=== PATIENT | female | born 1985 | race Caucasian/White ===

== ENCOUNTER 2025-03-17 08:28 | Outpatient (AMB) | payer BC, SELFPAY ==
--- NOTE | 2025-03-17 08:37 | MHC.OFFVIS ---
Intake Visit Reasons: MS Allergies cephalexin Allergy (Unknown, Verified 03/17/25 08:40) Unknown Medication List - Last Reconciled 03/17/25 by Maday Terrazas CNP baclofen 10 mg PO BID PRN gabapentin 100 mg PO TID modafinil 200 mg PO DAILY ocrelizumab (Ocrevus) 600 mg IV [id number] sertraline 50 mg PO DAILY HPI Comments Details: She was doing okay. No new MS symptoms. Intermittent tingling to L foot is unchanged. Heaviness in arms and legs unchanged. Bilateral hand numbness and stiffness unchanged. Has trouble walking for longer than 20 minutes without having to rest, no falls. Modafinil from [facility] neurologist helping with short-term memory and concentration. 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 Home Ocrevus infusions, managed by [facility] neurologist, last 01/28/2025. Has brain and spine MRIs with and without contrast ordered by [facility] neurologist, no yet scheduled. No significant migraines, has not had to use sumatriptan. Some kicking in legs at night controlled with gabapentin. Sleep was okay. Had MRI brain WO contrast at [facility], ordered by [facility] neurologist 02/2024, report on phone, unchanged from prior. Some intermittent tingling to left foot since 11/2023, started after long day of walking and can be triggered by touching certain parts of leg. Mental fatigue at end of day. Has some trouble with short-term memory and difficulty concentrating. Modafinil from [facility] neurologist helping. Gets tired easily when walking longer distances or standing for longer periods of time. Using rollator walker more regularly. Arms and legs feel heavy. Gets tired easily when walking longer distances or standing for longer periods of time. Using rollator walker more regularly. Arms and legs feel heavy. No trouble typing on computer. Fine motor skills are not as great. Generally sleeping okay. She had a spell of dissociation on 04/29/22 for 20-30 secs. MRI of brain and spinal cord in July 2020 unchanged and no new activity. Started Ocrevus 07/26/17. Premedicated with Solumedrol just before and Benadryl. No side effects except mouth feels parched. She first developed optic neuritis at age 17 and subsequently had another bout of optic neuritis in the other eye. She was diagnosed with relapsing remitting multiple sclerosis at age 17. She was under the care of Dr. Blanchard, subsequently by in [place], and most recently followed by a neurologist in [place]. She was initially treated for a few years with Avonex, subsequently Rebif, Aubagio, Tecfidera and finally Gilenya. She has continued to have active MS in spite of these drugs based on her history and MRI. She has generally done well clinically and is functioning well, except in the last year she has noted some memory problems and in the last 3 weeks she's developed right lower extremity numbness and difficulty walking. She is using a walker to get around. Bladder function is normal. She has some lack of dexterity in the right hand as well. She's developed nausea and vomiting in the last few weeks. Her menstrual cycle was 1 week ago and she is not . No migraines with visual aura since 2017. Memory is better than before. Review of Systems Const Denies chills, Denies daytime sleepiness, Denies difficulty sleeping, Reports fatigue, Denies fever(s), Denies frequent falls, Reports headache(s), Denies increased appetite, Denies poor appetite, Denies snoring, Denies weakness, Denies weight gain and Denies weight loss Eyes Denies loss of vision ENT Denies vertigo, Reports dizziness, Reports headache(s) and Denies neck pain Card Denies chest pain at rest, Denies chest pain with activity, Denies syncope, Denies leg edema, Denies palpitations, Denies dyspnea and Denies dyspnea on exertion Resp Denies cough, Denies dyspnea, Denies dyspnea on exertion and Denies snoring GI Denies abdominal pain, Denies constipation, Denies heartburn, Denies diarrhea and Denies nausea Denies urinary frequency, Denies urinary incontinence and Denies urinary urgency Musc Reports abnormal gait (balance difficulty), Denies back pain, Denies myalgias, Denies arthralgias, Reports muscle weakness, Denies neck pain, Reports numbness and Reports tingling Neuro Reports abnormal gait (balance difficulty), Denies vertigo, Reports dizziness, Denies syncope, Denies frequent falls, Reports headache(s), Denies lack of coordination, Denies loss of vision, Denies memory loss, Reports numbness, Denies Other visual disturbances, Denies restless legs, Denies seizure-like activity, Reports tingling, Denies paresthesias, Denies tremor(s) and Denies weakness Psych Reports anxiety, Reports depression, Denies auditory hallucinations, Denies memory loss and Denies visual hallucinations Endo Reports fatigue and Denies palpitations Physical Exam Const Other: General Appearance:? normal, in no acute distress. Heart:? S1, S2 normal, no murmurs. Lungs:? clear anteriorly and posteriorly. Musculoskeletal:? normal. Extremities:? no edema. Psych:? alert, oriented, cognitive function intact, cooperative with exam. Neuro Other: Abnormal Neurological Findings:?RUE 5/5, RLE 5/5, distally 5/5 with hyperreflexia and bilateral Babinski, Nystagmus on left lateral gaze is gone. Slow horizontal saccadic eye movements Mental Status: alert and oriented X 3. Normal attention, orientation, memory, and affect. Cranial Nerves: Pupils are equal, round, and reactive to light. External ocular muscles are intact. Visual lares are full, no ptosis. Face is symmetrical, no facial weakness or droop. Facial sensations are normal. Tongue protrudes in midline. Palate elevates symmetrically. Shoulder shrugging is normal Motor Examination: As above. Sensory Exam: Normal light touch, temperature, pinprick, vibration, and joint-position sensations. Rhomberg sign is absent. Coordination: No ataxia. No titubation. Gait Exam: Within normal limits. Cerebellar Signs: [id number] is okay. Extrapyramidal System: No tremor, rigidity with normal facial expressions. No bradykinesia. No bradyphrenia. Normal arm swing and posture. No propulsion or retropulsion. Speech: Normal. Results Reviewed Results Reviewed: 01/06/17 JCV positive Stratify index 3.39. Not a candidate for Tysabri. 12/16/16 MRI brain shows multiple enhancing lesions with active disease. ( She was off the Gilenya for 3 months prior to that but has had active disease while on it). Labs ordered .02/15/17 TB test was negative. Hepatitis and all tests normal except borderline liver enzymes. Started Ocrevus 07/27/17 first dose at [facility] 11/09/17 MRI stable without any new lesions. 11/26/18 MRI brain and SC show no new lesions 08/10/19 labs ok except low CD3-CD19 08/02/20 MRI brain, C-spine and thoracic spine show no interval change. MRI brain WO contrast at [facility] 02/2024: unchanged (reported) Assessment & Plan Assessment & Plan (1) Multiple sclerosis: Code(s): G35 - Multiple sclerosis Category: Medical Plan: Continue current treatment, following with [facility] neurologist who is managing Ocrevus home infusions and MRIs which were ordered but not yet scheduled. She was asked to have report of MRIs sent to office once completed. (2) Migraine with aura: Code(s): G43.109 - Migraine with aura, not intractable, without status migrainosus Category: Medical Qualifiers: Status migrainosus presence: without status migrainosus Intractability: not intractable Qualified Code(s): G43.109 - Migraine with aura, not intractable, without status migrainosus Plan: Continue sumatriptan 100mg 1 tablet as needed for migraine. Coding Level of Care Code Est Pt Level 4 (01688) Diagnoses Multiple sclerosis G35 Migraine with aura and without status migrainosus, not intractable G43.109 Status migrainosus presence: without status migrainosus Intractability: not intractable
--- OUTSIDE RECORDS SUMMARY | 2025-03-17 08:51 | XMS_ITS | Encounter Summary ---
Author Organization [facility] Address [address] [place] [address] Care Team Providers Care Children'S Book Author Name Role Phone Netta Crum MD Primary Care Provider Unavaila ble Unknown Pcp, Non Rmg Primary Care Provider Unava ilable Reason for Visit * Reason Comments E-prescribing Refill Request Encounter Details Date Type Department Care Team ([facility] st Contact Info) Description 08/10/[address] 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 Medication last filled-04/14/2014 for a three month supply, pharmacy requesting a one month through [facility] Faxed/E-prescribed medication renewal request(s) for Makenzie Beebe 29 y.o. female received from pharmacy. Unable to confirm pharmacy with pt, most recent pharmacy on file was used. Last CPE with this specialty: 2013 Last OV with this specialty: 11/06/2013 Next OV: No future appointments. Pertinent lab results: No labs suggested for any medication orders signed or pended in this encounter. Refresh if any orders changed. Allergies: Review of patient's allergies indicates no known allergies. BP Readings from Last 1 Encounters: 05/10/14 100/72 Patient Active Problem List Diagnosis Date Noted ??? ASCUS on Pap smear 12/09/2013 Pap done on 11/27/13 was ASCUS. Follows with Radiographer Mammographer Dr Korin Romano. ??? MOOD DISORDER 09/03/2013 ??? Screening for cervical cancer 2013 Follows with [address]ographer Mammographer Dr Korin Romano. ??? FH: diabetes mellitus 08/31/2012 ??? MS (multiple sclerosis) 08/31/2012 Stable. Dx in [address] Tom. Current Outpatient Prescriptions on File Prior to Visit Medication Sig Dispense Refill ??? Venlafaxine HCl 37.5 MG CAPSULE SR 24 HR TAKE 1 CAPSULE DAILY WITH FOOD, 90 Cap 0 ??? Norgestimate-Eth Estradiol (SPRINTEC 28) 0.25-35 MG-MCG Tab 1 TABLET DAILY documented in this encounter Plan of Treatment Not on file documented as of this encounter Visit Diagnoses Not on filedocumented in this encounter Care Teams Children'S Book Author Relationship Specialty Start Date End Date Netta Crum MD PCP - General Internal Medicine 07/11/13 01/26/15 Unknown Pcp, Non Rmg PCP - General Surgical Oncology 01/27/15 documented as of this encounter
--- OUTSIDE RECORDS SUMMARY | 2025-03-17 08:51 | XMS_ITS | Encounter Summary ---
Author Organization [facility] Address [address] [place] [id number] Phone Care Team Providers Care Pattern Designer Name Role Phone Nina Silver MD Primary Care Provider Nina Silver MD Unavailable Nina Silver MD Unavailable Pcp, Unknown [facility] Candice Hugo MD Primary Care Provider [phone] Encounter Details Date Type Department Care Team (Late st Contact Info) Description 06/24/2015 Transcribe Orders [facility] Echocardiography [address] [place] [address] Falguni Wang [address] [place] [address] [email or web address] Multiple sclerosis Social History Tobacco Use Types Packs/Day Years Used Date Smoking Tobacco: Never Smokeless Tobacco: Never Alcohol Use Standard Drinks/Week Comments No 0 (1 standard drink = 0.6 oz pur e alcohol) Comments No Sex and Gender Information Value Date Recorded Sex Assigned at Female 05/22/2017 9:29 AM EST Legal Sex Female 6:58 PM EST Gender Identity Female Sexual Orientation Straight documented as of this encounter Plan of Treatment Not on file documented as of this encounter Procedures Procedure Name Priority Date/Time Associated Diagnosis Comments ECG 12-LEAD Routine 06/24/2015 11:03 AM EST Multiple sclerosis documented in this encounter Results * ECG 12 lead (06/24/2015 11:03 AM EST) Ventricular Rate EKG/MIN 100 BPM [facility] Atrial Rate 100 BPM [facility] MA Interval 110 ms [facility] QRS Duration 78 ms [facility] QT Interval 312 ms [facility] QTC Interval 402 ms [facility] P [place] 69 degrees [facility] R Wave [place] 51 degrees [facility] T Wave [place] 65 degrees [facility] 06/24/2015 11:0 3 AM EST Narrative [facility] - 06/25/2015 12:08 PM EST Sinus rhythm with short [place] Otherwise normal ECG No previous ECGs available Terri Theodore MD, MSc, PhD ECG ORDERABLES F inal Result ROBERTO[facility] documented in this encounter Visit Diagnoses Diagnosis Multiple sclerosis documented in this encounter Additional Health Concerns Assessment Noted Time PHQ-9 Depression Total Score: 0 04/22/20 15 11:18 AM EST PHQ-2 Depression Total Score: 0 04/22/20 15 11:18 AM EST documented as of this encounter Care Teams Pattern Designer Relationship Specialty Start Date End Date Nina Silver MD [email or web address] PCP - General Internal Medicine 01/21/15 01/23/17 Pcp, Unknown PCP - General 01/24/17 06/05/17 Candice Justice MD [address] [place] [id number] PCP - General Internal Medicine 06/06/17 Nina Silver MD [address] [place] [id number] [email or web address] Assigned Provider 05/23/15 12/17/16 Nina Silver MD [address] [place] [address] [email or web address] Attributed Provider 07/18/15 02/18/17 documented as of this encounter Additional Source Comments The information contained in this document represents components of the legal health record. It is not the complete legal health record.[email or web address]
--- OUTSIDE RECORDS SUMMARY | 2025-03-17 08:51 | XMS_ITS | Clinical Summary ---
Author Organization [facility] [address] [facility] Address [address] [place], [place] [address], [place] [address] Phone Care Team Providers Care Client Relations Specialist Name Role Phone Candice Justice MD Primary Care Provider [phone] Allergies Active Allergy Reactions Criticality Noted Date Comments Cephalexin Rash 11/21/2016 Medications baclofen (LIORESAL) 10 mg tablet Take 1 tablet (10 mg total) by mouth 3 (three) times a day if needed. 06/07/2022 Active fexofenadine HCl (JUVENTINO ALLERGY ORAL) Take by mouth. Active gabapentin (NEURONTIN) 100 mg capsule Take 1 capsule (100 mg total) by mouth 3 (three) times a day if needed (MS). 06/07/2022 Active modafiniL (PROVIGIL) 200 mg tablet 10/19/2022 Active ocrelizumab (Ocrevus) 30 mg/mL solution injection Inject into the vein. Per external neurology. 08/07/2017 Active cholecalciferol (VITAMIN D-3) 25 mcg (1,000 unit) capsule Take 2 capsules (2,000 Units total) by mouth 1 (one) time each day. Active SUMAtriptan (IMITREX) 100 mg tablet TAKE 1 TABLET BY MOUTH EVERY 4 HOURS NEEDED UP TO TWICE A DAY 09/05/2023 Active sertraline (ZOLOFT) 50 mg tablet Take 1 tablet (50 mg total) by mouth 1 (one) time each day. 90 tablet 12/16/2024 Active Active Problems Problem Noted Date Diagnosed Date Hyperlipidemia 12/25/2023 Vasovagal syncope 04/21/2021 Palpitation 11/06/2020 Overview (04/16/2024): Holter monitor shows rare PACs. No PVCs. Left ovarian cyst 10/22/2020 Major depressive disorder, recurrent, mild (CMS/ HCC V24) 12/21/2018 Generalized social phobia 12/13/2017 Panic disorder 06/27/2017 Allergic rhinitis 01/13/2017 Migraine 11/21/2016 Multiple sclerosis 11/21/2016 Overview (04/16/2024): 2 episodes optic neuritis 2006, eye exam 06/2016. MRI of brain, cervical and thoracic spine done 02/2016 Vitamin D deficiency 11/21/2016 Optic neuritis 05/27/2015 Encounters Date Type Department Care Team Description 03/01/2025 8:23 AM EDT - 03/01/2025 11:59 PM EDT [facility] [address] [phone] Encounter for screening mammogram for malignant neoplasm of breast Discharge Disposition: Home or Self Care 12/25/2024 8:15 AM EDT Office Visit Adult Medicine [address] [phone] Candice Justice MD Vitamin D deficiency (Primary Dx); Other hyperlipidemia; Major depressive disorder, recurrent, mild (CMS/HCC V24); Encounter for screening mammogram for malignant neoplasm of breast from Last 3 Months Immunizations Immunization Administration Dates Next Due COVID-19 (Moderna/Spikevax) 12yo and older 09/08/2022 Influenza Quadravalent, MDCK , 0.5ml, preservative free (Flucelvax) 6mo and older 07/04/2022,04/14/2021 Influenza Quadravalent, MDCK , 0.5ml, with preservative (Flucelvax) 6mo and older 02/13/2017 Influenza trivalent, 0.5mL, preservative free (Fluarix; FluLaval; Fluzone) ages 6mo and older (Afluria) 3 years and older 03/24/2020,02/18/2019,03/15/2018,02/07,05/04/2015,04/08/2006,04/06/2005 Meningococcal Polysaccharide 09/17/2002 PPD Test 02/13/2017,09/19/2002,09/17/2002 Td Tetanus diptheria (Tdvax) 7yo and older 01/14/2021 Tdap Tetanus diptheria acell ular pertussis (Boostrix; Adacel) 7yo and older 04/14/2010 Surgical History Surgery Date Site/Laterality Comments COLPOSCOPY 2013 WISDOM TOOTH EXTRACTION Medical History Medical History Date Comments Migraine 11/21/2016 : with aura Multiple sclerosis 11/21/2016 Anxiety 11/21/2016 H/O abnormal cervical Papani colaou smear 12/22/2016 ASCUS & positive HPV 2011 (C IN 1 on colpo) & 2013. Normal x 2 in 2014 Vitamin D deficiency 11/21/2016 Depression 12/22/2016 Allergic rhinitis 01/13/2017 Family History Medical History Relation Name Comments Stomach cancer Aunt maternal w/ mets to br ain, Crohns, diabetes, anxiety/depression Other: [place] X2 Brother x 1 HTN, DM, Hyperl ipidemia, Coronary artery disease Father Mult iple [place]'s, Anxiety, Depression, DM Type I, Hyperlipidemia, HTN Colon cancer Maternal Grandfather Heart attack Mother HTN, Type 2 DM, Hyperlipidemia Depression Sister x 1 Heart attack Uncle maternal Relation Name Status Comments Aunt maternal Brother x 1 Alive Father Maternal Grandfather Maternal Grandmother Mother Alive Paternal Grandfather Paternal Grandmother Sister x 1 Alive Uncle maternal Alive Social History Tobacco Use Types Packs/Day Years Used Date Smoking Tobacco: Never Smokeless Tobacco: Never Tobacco Cessation:Counseling Given: No Alcohol Use Standard Drinks/Week Comments No 0 (1 standard drink = 0.6 oz pur e alcohol) Housing Instability Answer Date Recorde d Are you worried that in the next 2 months you may not have stable housing? No 06/25/2024 Food Access & Nutrition Answer Date Rec orded Do you have access to a vari ety of food including fruits and vegetables? Yes 06/25/2024 Access to Healthcare Answer Date Record ed Within the last 3 months, ho w many times did you visit the emergency department for your medical care? 0 06/25/2024 Health Literacy Answer Date Recorded How often do you need to hav e someone help you when you read instructions, pamphlets, or other written material from your doctor or pharmacy? Never 06/25/2024 Caregiver: How often do you need to have someone help you when you read instructions, pamphlets, or other written material from your doctor or pharmacy? Not on file 06/25/2024 Financial Risk Answer Date Recorded How hard is it for you to pa y for the very basics like food, housing, medical care, and air conditioning / heating? Not very hard 06/25/2024 Transportation Answer Date Recorded Has the lack of transportati on kept you from meetings, work, or from getting things needed for daily living? No Has the lack of transportati on kept you from medical appointments or from getting medications? No 06/25/2024 Social Isolation Answer Date Recorded How often do you feel lonely or isolated from th ose around you? Rarely 06/25/2024 Food Risk Answer Date Recorded Within the past 12 months we worried whether our food would run out before we got money to buy more. Never true 06/25/2024 Within the past 12 months th e food we bought just didn't last and we didn't have money to get more. Never true 06/25/2024 Dependent Care Answer Date Recorded Do you need help finding or paying for care for your loved ones. For example, childbirth and infant care teacher or elderly care for an older adult? No 06/25/2024 Education Answer Date Recorded Do you think completing more education or training, like finishing a GED, going to college, or learning a trade, would be helpful for you? N/A 06/25/2024 Employment and Income Answer Date Recor ded During the last four weeks, have you been actively looking for work? No 06/25/2024 Living Situation Answer Date Recorded What is your living situation? Unrecognized valu e 06/25/2024 Comments No Sex and Gender Information Value Date Recorded Sex Assigned at Female 06/25/2024 6:01 PM EST Legal Sex Female 11:31 PM EST Gender Identity Female 06/25/2024 6:01 PM EST Sexual Orientation Straight 06/25/2024 6: 01 PM EST Obstetrics History Para Term AB IAB SAB Ectopic Multiple Livin g Live Births 0 Last Filed Vital Signs Vital Sign Reading Time Taken Comments Blood Pressure 110/52 12/25/2024 8:02 AM EDT Pulse 126 12/25/2024 8:02 AM EDT Temperature 36.1 C (96.9 F) 12/25/2024 8:02 AM EDT Respiratory Rate 14 12/25/2024 8:02 AM EDT Oxygen Saturation 99% 12/25/2024 8:02 AM EDT Inhaled Oxygen Concentration - - Weight 63.5 kg (140 lb) 03/01/2025 8:27 AM EDT Height 165.1 cm (5' 5 ) 03/01/2025 8:27 AM EDT Body Mass Index 23.3 03/01/2025 8:27 AM EDT Plan of Treatment Upcoming Encounters Date Type Department Care Team (Late st Contact Info) Description 06/27/2025 8:00 AM EST Office Visit Adult Medicine [facility] [address] [place] [address] Jeanine Payton PA [address] [place] [address] Health Maintenance Due Date Last Done Comments Hepatitis B Vaccines (1 of 3 - 19+ 3-dose series) 07/30/2003 HPV Vaccines (1 - 3-dose SCDM series) 07/30/2011 HIV Screening 04/23/2022 Hepatitis C Screening 04/23/2022 Influenza Vaccine (#1) 2025 3, 04/14/2021, 03/24/2020, Additional history exists Social Influencers of Health Screening 06/25/2025 06/25/2024 Cervical Cancer Screening: HPV 10/13/2025 10/13/2020 Breast Cancer Screening 03/01/2027 03/01/2025 Cholesterol Screening (Lipid Panel) 01/06/2030 01/06/2025, 09/25/2023, 09/25/2023 DTaP,Tdap,and Td Vaccines (3 - Td or Tdap) 01/14/2031 01/14/2021, 04/14/2010 RSV Immunization Adult Patients (1 - 1-dose 75+ series) 07/30/2059 Meningococcal ACWY Vaccine Aged Out 09/17/2002 N o longer eligible based on patient's age to complete this topic COVID-19 Vaccine Completed 03/09/2024, , 09/08/2022, Additional history exists Depression Screening Completed 06/25/2024 HIB Vaccines Aged Out No longer eligi ble based on patient's age to complete this topic Hepatitis A Vaccines Aged Out No long er eligible based on patient's age to complete this topic IPV Vaccines Aged Out No longer eligi ble based on patient's age to complete this topic MMR Vaccines Aged Out No longer eligi ble based on patient's age to complete this topic Meningococcal B Vaccine Aged Out No l onger eligible based on patient's age to complete this topic Pneumococcal Vaccine: Pediatrics (0 to 5 Years) and At-Risk Patients (6 to 49 Years) Aged Out No longer eligible based on patient's age to complete this topic RSV Immunization Patients Under 20 months Aged Out No longer eligible based on patient's age to complete this topic Varicella Vaccines Aged Out No longer eligible based on patient's age to complete this topic Procedures Procedure Name Priority Date/Time Associated Diagnosis Comments MG MAMMO DIGITAL SCREENING W GRAY BILAT Routine 03/01/2025 8:36 AM EDT Encounter for screening mammogram for malignant neoplasm of breast LIPID PANEL WITH REFLEX TO DIRECT LDL Routine 01/06/2025 8:25 AM EDT Mixed hyperlipidemia VITAMIN D 25 HYDROXY Routine 01/06/2025 8:25 AM EDT Vitamin D deficiency HM HPV Routine 10/13/2020 from Last 3 Months or Most Recently Relevant to Health Maintenance Results * MG Mammo Digital Screening w Gray bilat (03/01/2025 8:36 AM EDT) Anatomical Region Laterality Modality Breast Bilateral Mammography 03/01/2025 9:48 AM EDT Impressions 03/01/2025 10:25 AM EDT Benign. BI-RADS CATEGORY: 1 - NEGATIVE RECOMMENDATION: Screening bilateral mammogram is recommended in 1 year. Mammo Location: [facility], [address] [place] [address], [id number], . -------- FINAL REPORT -------- Dictated By: Bryon Mera Dictated Date: 03/01/2025 09:48 ET Assigned Physician: Bryon Mera Reviewed and Electronically Signed By: Bryon Mera Signed Date: 03/01/2025 10:25 ET Workstation ID: [id number] Transcribed By: Self Edit Transcribed Date: 03/01/2025 09:48 ET Narrative 03/01/2025 10:25 AM EDT CLINICAL: 39 years old, Female, routine annual exam. COMPARISON: None. TECHNIQUE: Bilateral MLO and CC views were obtained digitally with 3-D mammogram (digital breast tomosynthesis). Computer-aided detection was utilized in evaluation of this exam (CAD). FINDINGS: No suspicious mass or architectural distortion. No suspicious calcification. There has been no significant change from prior exam(s). BREAST DENSITY: B - There are scattered areas of fibroglandular density. Procedure Note Bryon Mera MD - 03/01/2025 CLINICAL: 39 years old, Female, routine annual exam. COMPARISON: None. TECHNIQUE: Bilateral MLO and CC views were obtained digitally with 3-Dmammogram (digital breast tomosynthesis). Computer-aided detection wasutilized in evaluation of this exam (CAD). FINDINGS: No suspicious mass or architectural distortion. No suspiciouscalcification. There has been no significant change from prior exam(s). BREAST DENSITY: B - There are scattered areas of fibroglandular density. IMPRESSION: Benign. BI-RADS CATEGORY: 1 - NEGATIVE RECOMMENDATION: Screening bilateral mammogram is recommended in 1 year. Mammo Location: [facility], [address] [place] [address], [address], . -------- FINAL REPORT -------- Dictated By: Bryon Mera Dictated Date: 03/01/2025 09:48 ET Assigned Physician: Bryon Mera Reviewed and Electronically Signed By: Bryon Mera Signed Date: 03/01/2025 10:25 ET Workstation ID: [id number] Transcribed By: Self Edit Transcribed Date: 03/01/2025 09:48 ET us Candice Justice MD IMG BI PROCEDURES Final Result * (ABNORMAL) Lipid panel with reflex to direct LDL (01/06/2025 8:25 AM EDT) Cholesterol 194 0 - 200 mg/dL LAB CHEMISTRY METHOD 01/06/2025 11:42 AM EDT [facility] Triglycerides 113 0 - 150 mg/dL LAB CHEMISTRY METHOD 01/06/2025 11:42 AM EDT [facility] HDL 65 >=40 mg/dL LAB CHEMISTRY METHOD 01/06/2025 11:42 AM EDT [facility] LDL Calculated 106(H) 0 - 100 mg/dL LAB CHEMISTRY METHOD 01/06/2025 11:42 AM EDT [facility] Comment:Estimated LDL Calcul ated using equation: Total cholesterol - HDL cholesterol - (Triglycerides/5) VLDL Cholesterol Jostin 22.6 mg/dL LAB CHEMISTRY METHOD 01/06/2025 11:42 AM EDT [facility] Non HDL Chol. (LDL+VLDL) 129 <145 mg/dL LAB CHEMISTRY METHOD 01/06/2025 11:42 AM EDT [facility] Chol/HDL Ratio 3.0 0.0 - 4.4 LAB CHEMISTRY METHOD 01/06/2025 11:42 AM EDT [facility] Blood Venous blood specimen / Unknown Venipuncture / Unknown 01/06/2025 8:25 AM EDT 01/06/2025 8:25 AM EDT us Jeanine ARANA LAB BLOOD ORDERABLES Final Re sult [facility] [address] [place] [address], [place] [phone] * (ABNORMAL) Vitamin D 25 hydroxy (01/06/2025 8:25 AM EDT) Pathologist [facility] Vit D, 25-Hydroxy 25.7(L) 30.0 - 80.0 ng/mL LAB CHEMISTRY METHOD 01/06/2025 12:25 PM EDT [facility] Blood Venous blood specimen / Unknown Venipuncture / Unknown 01/06/2025 8:25 AM EDT 01/06/2025 8:25 AM EDT Jeanine ARANA LAB BLOOD ORDERABLES Final Re sult [facility] ([facility]) [facility] [address] [place] [address], * Cervical Cancer Screening: HPV (10/13/2020) [facility] Cervical Cancer Screening: HPV negative, abstracted Historical Provider HEALTH MAINTENANCE Final Result from Last 3 Months or Most Recently Relevant to Health Maintenance Insurance [facility] Care Teams Client Relations Specialist Relationship Specialty Start Date End Date Candice Justice MD [address] [place] [address] PCP - General 08/24/99
--- OUTSIDE RECORDS SUMMARY | 2025-03-17 08:51 | XMS_ITS | Clinical Summary ---
Author Organization [facility] Address [address] [place] [phone] Phone Care Team Providers Care Sample Prep Technician Name Role Phone Candice Justice MD Primary Care Provider [phone] Allergies Active Allergy Reactions Criticality Noted Date Comments Keflex (Cephalexin) Rash Low 05/31/2016 Asymptomatic rash. Okay to give PCN-class for serious infections. Medications cholecalcifero l (VITAMIN D3) 1,000 unit tablet Take 1,000 Units by mouth daily. Active sertraline (ZOLOFT) 50 MG tabletIndicati ons:anxiety with depression Take 50 mg by mouth daily. Indications: Anxiety with Depression Active ocrelizumab (OCRELIZUMAB) 30 mg/mL injection Inject 20 mL (600 mg total) into the vein every 6 (six) months. 20 mL 0 Active baclofen (LIORESAL) 10 MG tabletIndicati ons:Multiple sclerosis TAKE 1 TABLET 3 TIMES A DAY 270 tablet 3 4 Active Additional Information Patient taking differently:10 mg Oral 3 times daily,Indications: only once daily, Reported on 06/17/2024 fexofenadine-p seudoephedrine (JUVENTINO-D 12 HOUR) 60-120 mg per tablet Take 1 tablet by mouth daily. Active gabapentin (NEURONTIN) 100 MG capsuleIndicat ions:Multiple sclerosis TAKE 1 CAPSULE 3 TIMES A DAY 270 capsule 3 5 Active modafiniL (PROVIGIL) 200 MG tabletIndicati ons:Chronic fatigue Take 1 tablet (200 mg total) by mouth daily. 90 tablet 2 5 Active modafiniL (PROVIGIL) 200 MG tabletIndicati ons:Chronic fatigue Take 1 tablet (200 mg total) by mouth daily. 90 tablet 2 5 03/04/20 25 Discontin ued(Reord er) Active Problems Problem Noted Date Diagnosed Date Pharyngitis 05/19/2016 Overview (05/19/2016): 30 y.o woman who presents for sore throat and rash all over her body since 05/15/16. Assessment & Plan (05/19/2016 7:18 PM EST): Rash is less likely from scarlet fever. However, will check throat culture and rapid strep. Recommend: Warm salt water gargles every 2 hours. Saline nasal spray, hot steam inhalation. Increased fluids and rest. For symptomatic relief, may alternate between Acetaminophen up to 650-1000 mg every 4-6 hours (< 4 g/day) and Ibuprofen 400 mg three times a day with meals for no more than two weeks as directed. ? Notify your healthcare provider if symptoms do not improve within 7 days or are accompanied by fever.? Cellulitis of abdominal wall 05/05/2016 Assessment & Plan (05/05/2016 11:58 AM EST): Left flank/abdomen wound with serous drainage and surrounding erythema and induration. I do not think this is an abscess but she may be developing a cellulitis. Will treat empirically with cephalexin for one week. My concern for MRSA is low. I gave her gauze and tape to use. She should keep the area clean and dry and open to air if possible. We discussed if this wound does not seem to be healing over the next week she should follow up. I also discussed the antibiotic treatment with her neurologist, there should not be an interaction with her Josefa. Rash 05/05/2016 Overview (05/19/2016): 30 y.o woman who presents for sore throat and rash all over her body since 05/15/16. Assessment & Plan (05/19/2016 7:21 PM EST): Dr. Flowers consulted and examined the patient as well. ? of Erythema multiforme. Etiology reviewed. Possibly from recent use of Cephalexin, herpes simplex infection. Handout on EM given to patient. Continue with symptomatic care if needed. Schedule follow up with dermatology. E-referral generated. Appt made with Dr. Annie Lai for evaluation today. Assessment & Plan (05/05/2016 11:55 AM EST): Bilateral anterior thigh rash for 1 week, asymptomatic but increasing in size and extension. The location is not typical for psoriasis and there is more crusting than scale. I don't think this is a drug reaction either. Gilenya does not typically cause a rash. I discussed this also with her neurologist. I was able to arrange for a dermatology appointment this afternoon for evaluation. Vitamin D deficiency 01/26/2016 Overview (01/26/2016): 02/2015 vit D = 17. Recommend increasing vit D in diet and take 1000 IU daily supplement. Assessment & Plan (01/26/2016 10:30 PM EDT): 02/2015 vit D = 17. Recommend increasing vit D in diet and take 1000 IU daily supplement. Defer to neuro on repeat testing. Vaginal spotting 01/26/2016 Overview (01/26/2016): Last 6 mos noticed spotting at week 2-3 that occurs for 3 days (non- consecutive). Does not miss OCP. Denies vaginal cramping or heavy menses. No post-coital bleeding. Assessment & Plan (02/08/2016 1:34 PM EDT): 6 months of intermenstrual spotting around the second or third week of her pill. She's been on this current OCP for multiple years without any issues. She is compliant with taking it on time. She does not have any other associated symptoms except for left lower quadrant pain with intercourse. Her exam was normal except for cervical ectropion. I am not sure if her vaginal spotting given it is so consistent is related to the pill. I think other pathology such as cervical polyp, fibroids are unlikely given her symptoms and exam. She has a history of abnormal Pap smears with ASCUS and positive HPV in 2011 and 2013. She's had normal Pap smear in May 2014 as well January 2015. A repeat Pap smear is due in 3 years from the last. We discussed options such as trying a different progesterone in the pill. She is orally on 35 g of estrogen in her pill. Given she is not interested in getting ever, we did discuss whether switching to another method such as IUD may help with the spotting and be a more convenient form of control. We discussed the differences between progesterone and copper IUD. She will follow up with gynecology to discuss further. Assessment & Plan (01/26/2016 10:36 PM EDT): She will return for a pelvic exam to evaluate for other pathology such as cervical polyp. Irregular OCP use is not an issue. Decreased libido 01/26/2016 Overview (01/26/2016): Starting 6 mos ago has noticed decreased sex drive. Usually has a very good sex drive but now less interested. Feels more dry in the vaginal area, has tried lubrication. Also notes sometimes pain in the LLQ with penetration. No new factors. Relationship with monsee is good, he has no issues with ED. Anxiety is not increased lately. Assessment & Plan (02/08/2016 1:37 PM EDT): 6 months ago she also noticed decrease in libido and decrease in vaginal lubrication. There does not seem to be in obvious cause for this. She has been on venlafaxine for many years. We did discuss that the evidence regarding the role of control in decreasing libido is not clear. Since she is interested in LARC I have referred her to AIRPLANE COVERER to discuss further. Assessment & Plan (01/26/2016 10:44 PM EDT): Unclear etiology, no clear trigger. We discussed multifactorial nature. I do not think her meds are contributing as they are not new although SNRI may sexual dysfunction. Discussed ways to manage the mental component of sexual desire. Encouraged to lessen her own expectations of sexual libido, foster relationship again and libido may gradually return. Irregular heart beat 12/21/2015 Overview (02/08/2016): 12/2015 Every night starting a few weeks after starting Gilenya on 11/06/15 she has felt after 10 minutes of trying to fall asleep, she feels her heart rate normal, then speeds up then tries to catch up, like a skipped beat. It lasts only a second. She thinks there is only 1 episode. Has trouble sleeping as a result because she is worrying about it. Her baseline anxiety was stable prior to this symptom starting. Notices only at night, never during the day. Denies dizziness, lightheadedness, nausea, shortness of breath. Feels a chest heaviness when it happens. Hope something similar switching MS medications toTeriflunomide 5 years ago. Had holter for 1 week that was normal. Told her symptoms were due to anxiety. Event monitor x 1 month: NSR, occasional PVCs. Assessment & Plan (01/26/2016 10:37 PM EDT): Reassured her that thus far the event monitor has shown normal sinus rhythm, occasional PVCs which could explain her symptoms. Reassured her on benign nature. Does not need meds to suppress PVCs but if more frequent could consider. Will f/u on final report. Assessment & Plan (12/21/2015 6:29 PM EDT): For the last 1-2 months since starting Gilenya she has felt nightly irregular heartbeat lasting for a few seconds and just one episode. She does not notice it any other time of the day and there are no associated symptoms. It is possible that her symptoms could be PVCs based on her description. Her EKG was normal and a rhythm strip was normal, without PVCs or other arrhythmia. Gilenya has a risk of AV conduction delay and bradycardia, neither which should cause her current symptoms. We will do an event monitor. If it is normal then I would not pursue further workup. It is possible some anxiety about her ongoing symptoms could be perpetuating the symptoms. Optic neuritis 05/27/2015 Abnormal Pap smear of cervix 01/23/2015 Overview (01/26/2016): Prior abnormal pap 2008 per pt. 08/17/2011: ASCUS, HPV+ s/p colpo 09/2011 showing JAME I. 07/30/2012 pap neg. 11/17/13 pap ASCUS, HPV+ s/p colpo 12/2013 neg. 06/13/14 pap neg. 01/27 did pap, neg (no HPV testing done for some reason although ordered). Reviewed with air brake mechanic, can go to co-testing in 3 years. Pap due 01/2018. Assessment & Plan (04/22/2015 11:49 AM EST): Prior abnormal pap 2007 per pt. 11/2013 pap - ASCUS, HR HPV+, went to colpo, normal. 05/29 normal (records reviewed, no HPV testing done). 01/27 did pap, neg (no HPV testing done for some reason although ordered). Reviewed with air brake mechanic, can go to co-testing in 3 years. Pap due 01/2018. Assessment & Plan (01/23/2015 8:12 AM EDT): Unknown exact abnormality in 11/2013, reportedly HPV+ with subsequent colpo that was normal. Pap 05/29 was normal, was told to repeat in 6 mos. -will repeat pap today and obtain prior records to decide management Multiple sclerosis 05/15/2004 Overview (11/25/2015): Age 19. Dx with facial numbness, MRI with 1 lesion. 1 year later had optic neuritis. Couple years later had 2nd optic neuritis. No flares for 4-5 years. MS is relapsing and remiting. Seeing neurologist once a year. On Tecfidera for 2 years. Previously on multiple meds. 02/26 MRI shows lesions although not having symptoms. 10/28 started gilenya. Assessment & Plan (01/23/2015 8:10 AM EDT): Referred to MS clinic for further management. Routine general medical exam ination at a health care facility Overview (12/21/2016): High blood pressure screening: normal High cholesterol screenin/15 normal. Did it in 11/2016: according to care everywhere: LIPID PROFILE (11/21/2016 2:33 PM) LIPID PROFILE (11/21/2016 2:33 PM) Component Value Ref Range Cholesterol 196 0 - 200 mg/dL TRIGLYCERIDES 153 (H) 0 - 150 mg/dL HDL CHOLESTEROL 63 >40 mg/dL LDL CALCULATED 103 (H) 0 - 100 mg/dL TC-HDLC RATIO 3 0.0 - 4.4 mg/dL LIPID PROFILE (11/21/2016 2:33 PM) Specimen Performing Diabetes screenin/15 glucose normal. Contraception: sprintec. Chlamydia / gonorrhea screenin/15 neg, no new testing needed. Pap smear/HPV (): 01/27 neg. History of abnormal pap, reviewed with air brake mechanic. Repeat co-test at 3 years due 01/2018. Mammogram (40): n/a Tdap/Td (q10): 04/2010 Health Care Proxy: 11/26/2015 Eye exam: due for update Diet: working on eating healthy Exercise: working on exercise, walks Assessment & Plan (01/26/2016 10:40 PM EDT): High blood pressure screening: normal High cholesterol screenin/15 normal. Diabetes screenin/15 glucose normal. Contraception: sprintec. Chlamydia / gonorrhea screenin/15 neg, no new testing needed. Pap smear/HPV (): 01/27 neg. History of abnormal pap, reviewed with air brake mechanic. Repeat co-test at 3 years due 01/2018. Tdap/Td (q10): 04/2010 Assessment & Plan (01/23/2015 8:13 AM EDT): High blood pressure screening: normal High cholesterol screening: ordered. Diabetes screening: glucose ordered. Contraception: sprintec, condoms. Chlamydia / gonorrhea screening: done today, strict condom use. Cervical cancer screening: Pap smear done today. Ca/vit D intake discussed. Annual influenza vaccine recommended. Tdap vaccine ? Obtain records. HCP - she will complete and return. Migraines Mixed anxiety and depressive disorder Overview (05/05/2016): Age 19. Generally doesn't get depressed. Anxieties are about her health. Started with MS diagnosis and concerns about health. On effexor since 2006. Previously tried paxil and one other med which didn't help. 03/[address] Destiney kumar. Increased venlafaxine to 75mg/day, referred for CBT. Once she has completed CBT, it would be beneficial for her to meet with Kim Yi or another therapist, preferably versed in MS/ coping with chronic neurological/,medical conditions. Assessment & Plan (01/23/2015 8:16 AM EDT): High anxiety level due to running out of venlafaxine, had been doing well on low dose 37.5mg. EDILMA-7 = 11. -restart venlafaxine, if symptoms do not improve on it, she knows to return for further management -encouraged to find therapist here, will contact SW if unable to find one Resolved Problems Problem Noted Date Diagnosed Date Resolved Date Sore throat 11/26/2015 12/21/2015 Assessment & Plan (11/26/2015 9:47 AM EDT): Suspect likely viral pharyngitis but she is Gilenya which can increase her risk of infections. We'll check throat cultures for strep. Supportive care discussed including ibuprofen or Tylenol around the clock for the next few days. Cough 04/22/2015 09/14/2015 Assessment & Plan (04/22/2015 11:48 AM EST): Post-viral cough, now at 4 weeks after start of cold. Supportive care. -cough suppressants -warning signs reviewed Encounters Date Type Department Care Team Description 03/04/2025 Telephone [facility], Department of Neurology [address] [place] [address] Jerri Hess MD CPT code for MS 02/12/2025 Refill [facility], Department of Neurology [address] [place] [address] Jerri Hess MD Medication Refill from Last 3 Months Immunizations Immunization Administration Dates Next Due COVID-19 (Pre-03/06) Pfizer Vaccine, mRNA, PF ,11/02/2020 COVID-19 (Pre-03/06) Pfizer Vaccine, mRNA, mayra-sucrose, PF 10/30/2021,05/04/2021 Influenza Quadrivalent Preservative Free IM 01/14 Tdap 04/27/2010 Family History Medical History Relation Comments Diabetes Brother 2 overweight Hyperlipidemia Brother 3 Hypertension Brother 4 Heart attack Brother 5 2nd MO age 50 Anxiety disorder Father Coronary artery disease Father multiple MIs Depression Father Diabetes type I Father Hyperlipidemia Father Hypertension Father Diabetes Mother overweight Heart attack Mother Hyperlipidemia Mother Hypertension Mother Depression Sister 2 Anxiety disorder Sister 3 Multiple sclerosis Neg Hx Relation Status Comments Brother 1 Alive 20 years older Brother 2 Brother 3 Brother 4 Brother 5 Father Mother Alive Sister 1 Alive 12 years older Sister 2 Sister 3 Social History Tobacco Use Types Packs/Day Years Used Date Smoking Tobacco: Never Smokeless Tobacco: Never Tobacco Cessation:Counseling Given: Not Answered Alcohol Use Standard Drinks/Week Comments No 0 (1 standard drink = 0.6 oz pur e alcohol) Education Answer Date Recorded Are you interested in more education? Not on ned e 09/14/2022 Are you concerned about learning? Not on file 09/14/2022 No 09/14/2022 No 09/14/2022 Digital Access Answer Date Recorded No 10/09/2022 No 10/09/2022 Reliable internet access at home? Not on file 10/09/2022 Device with a working camera? Not on file Comments No Sex and Gender Information Value Date Recorded Sex Assigned at Female 05/22/2017 9:29 AM EST Legal Sex Female 6:58 PM EST Gender Identity Female Sexual Orientation Straight Last Filed Vital Signs Vital Sign Reading Time Taken Comments Blood Pressure 107/69 06/17/2024 2:03 PM EST Pulse 104 06/17/2024 2:03 PM EST Temperature 36.6 C (97.8 F) 06/17/2024 2:04 PM EST Respiratory Rate 18 08/10/2020 4:09 PM EDT Oxygen Saturation 100% 06/17/2024 2:0 3 PM EST Inhaled Oxygen Concentration - - Weight 68 kg (150 lb) 06/17/2024 2:00 PM EST patient reported Height 165.1 cm (5' 5 ) 02/27/2024 10:3 6 AM EDT Body Mass Index 24.96 02/27/2024 10:36 AM EDT Plan of Treatment Health Maintenance Due Date Last Done Comments HEPATITIS C SCREENING 2002 HIV ONE-TIME SCREENING (18-65 YEARS) 2002 PAP SMEAR 10/14/2023 10/13/2020, 01/22/2015 MAMMOGRAM 2024 INFLUENZA VACCINE (#1) 2024 , 03/04/2023, 07/04/2022, Additional history exists COVID-19 VACCINE ( season) 2025 03/09/2024, 03/04/2023, 09/08/2022, Additional history exists DEPRESSION SCREENING 06/17/2025 06/17/2024, 07/21/19 17 Adult Td,Tdap Booster 01/14/2031 01/14/2021 , 04/27/2010, 04/14/2010 MENINGOCOCCAL VACCINES (ACWY) Aged Out 09/17/2002 No longer eligible based on patient's age to complete this topic SMOKING STATUS SCREENING (Once After 26 Yrs) Completed 06/17/2024 HEPATITIS A VACCINES Aged Out No long er eligible based on patient's age to complete this topic HIB VACCINES Aged Out No longer eligi ble based on patient's age to complete this topic MENINGOCOCCAL VACCINES (B) Aged Out N o longer eligible based on patient's age to complete this topic PNEUMOCOCCAL VACCINES (0-49 years) Aged Out No longer eligible based on patient's age to complete this topic Medical Devices Not on file Procedures Procedure Name Priority Date/Time Associated Diagnosis Comments PAP TEST Routine 01/22/2015 12:00 AM EDT from Last 3 Months or Most Recently Relevant to Health Maintenance Results * Pap Smear (01/22/2015 12:00 AM EDT) 01/22/2015 01/23/2015 Narrative [facility] - 01/28/2015 3:05 PM EDT CASE: [id number] [facility] Department of Pathology [address] [place] [address] CLIA License No.: [id number] Policy Services Representative: Dr. Bradley Hooks Physician: MAIRA SILVER M.D. Procedure Date: 01/22/2015 Ordained Minister: LILY Cota(ASCP) THINPREP PAP TEST, CERVICAL FINAL CYTOLOGIC INTERPRETATION SPECIMEN ADEQUACY: Satisfactory for evaluation; transformation zone present. INTERPRETATION: NEGATIVE FOR INTRAEPITHELIAL LESION OR MALIGNANCY. AUTOMATED REVIEW: This specimen was prescreened using the ThinPrep Imaging System. CLINICAL DATA LMP: 12.31.14 TOTAL SLIDES 1 PROCEDURES Screening or High Risk ThinPrep with Auto Pre-Screen - [facility] 1 Final Diagnosis by German BAUTISTA(ASCP), Electronically signed on Wednesday January 28, 2015 at 02:30:10PM us Maira Silver MD CYTOLOGY ORDERABLES Final Result Performing Organization Address City/State/[facility] Co de Phone Number [facility] [address] [place] [address] from Last 3 Months or Most Recently Relevant to Health Maintenance Insurance [facility] Advance Directives For more information, please contact: [phone] (9AM - 5PM [facility], Monday-Monday) Documents on File Type Date Recorded Patient Technical Documentation Specialist Expl anation Healthcare Proxy 11/26/2015 11:20 AM Healt hcare Proxy Care Teams Sample Prep Technician Relationship Specialty Start Date End Date Candice Justice MD [address] [place] [address] PCP - General Internal Medicine 06/06/17 Additional Source Comments The information contained in this document represents components of the legal health record. It is not the complete legal health record.[facility]
--- OUTSIDE RECORDS SUMMARY | 2025-03-17 08:51 | XMS_ITS | Encounter Summary ---
Author Organization [facility] Address [address] [place] [phone] Phone Care Team Providers Care Logistics Program Manager Name Role Phone Candice Justice MD Primary Care Provider Encounter Details Date Type Department Care Team (Late st Contact Info) Description 06/10/2020 Procedure Pass [facility], [place] [address] [place] [address] Social History Tobacco Use Types Packs/Day Years [...] Diagnoses Not on filedocumented in this encounter Additional Health Concerns Assessment Noted Time PHQ-9 Depression Total Score: 0 04/22/20 15 11:18 AM EST PHQ-2 Depression Total Score: 0 05/19/19 17 1:23 PM EST documented as of this encounter Care Teams Logistics Program Manager Relationship Specialty Start Date End Date Candice Justice MD [address] [place] [address] PCP - General Internal Medicine 1/23/18 documented as of this encounter Additional Source Comments The information contained in this document represents components of the legal health record. It is not the complete legal health record.[facility]
--- OUTSIDE RECORDS SUMMARY | 2025-03-17 08:51 | XMS_ITS | Encounter Summary ---
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 Procedure Name Priority Date/Time Associated Diagnosis Comments STREPTOCOCCUS, GROUP A CULTURE Routine 05/10/2014 12:22 PM EST Sore throat documented in this encounter Results * Due to [place] [employer] law, this organization might not be sharing negative HIV tests. * STREPTOCOCCUS, GROUP A CULTURE (05/10/2014 12:22 PM EST) Culture, Streptococci Group A, Throat SEE NOTE [facility] Comment: {STREPTOCOCCUS, GROUP A CULTURE {[id number]) STREPTOCOCCUS, GROUP A CULTURE MICRO NUMBER: [id number] TEST STATUS: FINAL SPECIMEN SOURCE: THROAT SPECIMEN QUALITY: ADEQUATE RESULT: No beta hemolytic Streptococci isolated 05/10/2014 12:2 2 PM EST 05/10/2014 1:49 PM EST Narrative Resulting Agency Comment [id number] Barrie Davis MD LABORATORY Final Result Performing Organization Address City/State/[facility] Co de Phone Number [facility] [address] [place] [address] documented in this encounter Visit Diagnoses Diagnosis Sore throat Acute pharyngitis documented in this encounter Care Teams Founder And Chief Technical Officer Relationship Specialty Start Date End Date Netta Crum MD PCP - General Internal Medicine 07/11/13 01/26/15 Unknown Pcp, Non [facility] PCP - General Surgical Oncology 01/27/15 documented as of this encounter
--- OUTSIDE RECORDS SUMMARY | 2025-03-17 08:51 | XMS_ITS | Encounter Summary ---
Author Organization [facility] Address [address] [place] [address] Care Team Providers Care Supervisor Steno Pool Name Role Phone Netta Crum MD Primary Care Provider Unavaila ble Unknown Pcp, Non Rmg Primary Care Provider Unava ilable Reason for Visit * Reason Comments E-prescribing Refill Request Encounter Details Date Type Department Care Team ([facility] st Contact Info) Description 10/05/[address] 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 Please advise if not approved. * Telephone Encounter - Sherly Whitt - 10/07/2014 2:21 PM EDT Any special requests or concerns? Left message for patient to return my call. Noted on last Rx thatpatient needs an appointment prior to future refills. Faxed/E-prescribed medication renewal request(s) for Makenzie Beebe [...] done on 11/27/13 was ASCUS. Follows with Agricultural Extension Educator Dr Korin Romano. ??? MOOD DISORDER 09/03/2013 ??? Screening for cervical cancer 2013 Follows with [employer] Educ[employer] Dr Korin Romano. ??? FH: diabetes mellitus 08/31/2012 ??? MS (multiple sclerosis) 08/31/2012 Stable. Dx in [address] Tom. Current Outpatient Prescriptions on File Prior to Visit Medication Sig Dispense Refill ??? Venlafaxine HCl 37.5 MG CAPSULE SR 24 HR TAKE 1 CAPSULE DAILY WITH FOOD, please book appointment prior to further refills 30 Cap 1 ??? Norgestimate-Eth Estradiol (SPRINTEC 28) 0.25-35 MG-MCG Tab 1 TABLET DAILY documented in this encounter Plan of Treatment Not on file documented as of this encounter Visit Diagnoses Not on filedocumented in this encounter Care Teams Supervisor Steno Pool Relationship Specialty Start Date End Date Netta Crum MD PCP - General Internal Medicine 07/11/13 01/26/15 Unknown Pcp, Non Rmg PCP - General Surgical Oncology 01/27/15 documented as of this encounter
--- OUTSIDE RECORDS SUMMARY | 2025-03-17 08:51 | XMS_ITS | Encounter Summary ---
Author Organization [facility] Address [address] [place] [address] Phone Care Team Providers Care Supervisor Vine Fruit Farming Name Role Phone Candice Justice MD Primary Care Provider [phone] Encounter Details Date Type Department Care Team (Late st Contact Info) Description 03/16/2018 Procedure Pass [facility] MR Imaging, [place] [address] [place] [address] Social History Tobacco Use Types Packs/Day Years [...] documented as of this encounter Care Teams Supervisor Vine Fruit Farming Relationship Specialty Start Date End Date Candice Justice MD [address] [place] [address] PCP - General Internal Medicine 06/06/17 documented as of this encounter Additional Source Comments The information contained in this document represents components of the legal health record. It is not the complete legal health record.[facility]
--- OUTSIDE RECORDS SUMMARY | 2025-03-17 08:51 | XMS_ITS | Encounter Summary ---
Author Organization [facility] Address [address] [place] [address] Phone Care Team Providers Care Technical Publications Writer Name Role Phone Nina Silver MD Primary Care Provider [phone] Nina Silver MD Unavailable Nina Silver MD Unavailable Pcp, Unknown Primary Care Provider [facility] Candice Justice MD Primary Care Provider [phone] Reason for Visit * Reason Comments Other Encounter Details Date Type Department Care Team (Late st Contact Info) Description 09/07/2016 Refill [facility] Psychiatric Specialties Main [place] [address] [place] [address] Radha Cabello MD [address] [place] [address] [email or web address] Social History Tobacco Use Types Packs/Day Years [...] documented as of this encounter Care Teams Technical Publications Writer Relationship Specialty Start Date End Date Nina Silver MD [email or web address] PCP - General Internal Medicine 01/21/15 01/23/17 Pcp, Unknown PCP - General 01/24/17 06/05/17 Candice Justice MD [address] [place] [address] PCP - General Internal Medicine 06/06/17 Nina Silver MD [address] [place] [address] [email or web address] Insurance Assigned Provider 05/23/15 12/17/16 Nina Silver MD [address] [place] [address] [email or web address] Attributed Provider 07/18/15 02/18/17 documented as of this encounter Additional Source Comments The information contained in this document represents components of the legal health record. It is not the complete legal health record.[facility]
--- OUTSIDE RECORDS SUMMARY | 2025-03-17 08:51 | XMS_ITS | Encounter Summary ---
Author Organization [facility] Address [address] [place] [address] Phone Care Team Providers Care Purchasing Expeditor Name Role Phone Candice Justice MD Primary Care Provider [phone] Encounter Details Date Type Department Care Team (Late st Contact Info) Description 03/16/2018 Procedure Pass [facility] MR Imaging, [place] [address] [place] [address] Social History Tobacco Use Types Packs/Day Years [...] documented as of this encounter Care Teams Purchasing Expeditor Relationship Specialty Start Date End Date Candice Justice MD [address] [place] [address] PCP - General Internal Medicine 06/06/17 documented as of this encounter Additional Source Comments The information contained in this document represents components of the legal health record. It is not the complete legal health record.[facility]
--- OUTSIDE RECORDS SUMMARY | 2025-03-17 08:51 | XMS_ITS | Encounter Summary ---
Author Organization [facility] Address [address] [place] [address] Phone Care Team Providers Care Offset Second Press Operator Name Role Phone Candice Justice MD Primary Care Provider [phone] Encounter Details Date Type Department Care Team (Late st Contact Info) Description 03/16/2018 Procedure Pass [facility] MR Imaging, [place] [address] [place] [address] Social History Tobacco Use Types Packs/Day Years [...] documented as of this encounter Care Teams Offset Second Press Operator Relationship Specialty Start Date End Date Candice Justice MD [address] [place] [address] PCP - General Internal Medicine 06/06/17 documented as of this encounter Additional Source Comments The information contained in this document represents components of the legal health record. It is not the complete legal health record.[facility]
--- OUTSIDE RECORDS SUMMARY | 2025-03-17 08:51 | XMS_ITS | Encounter Summary ---
Author Organization [facility] Address [address] [place] [address] Care Team Providers Care Rn Oncology Research Name Role Phone Netta Crum MD Primary Care Provider Unavaila ble Unknown Pcp, Non Rmg Primary Care Provider Unava ilable Encounter Details Date Type Department Care Team (Late st Contact Info) Description 08/14/2013 Orders Only [facility] Internal Medicine [address] [place] [phone] Netta Crum MD Social History Tobacco Use Types Packs/Day Years [...] Industry Job Start Date Job End Date [employer] Not on file Not on file Not on ned e 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 * CBC INCLUDES DIFFERENTIAL AND PLATELET COUNT (08/17/2013 2:08 PM EDT) WBC 7.2 3.8 - 10.8 Thousand/u L [facility] Comment:{WHITE BLOOD CELL CO UNT {[id number]) RBC 4.43 3.80 - 5.10 Million/uL [facility] Comment:{RED BLOOD CELL COUN T {[id number]) Hemoglobin 13.8 11.7 - 15.5 g/dL [facility] Comment:{HEMOGLOBIN {[id number]) Hematocrit 41.0 35.0 - 45.0 % [facility] Comment:{HEMATOCRIT {[id number]) MCV 92.6 80.0 - 100.0 fL [facility] Comment:{MCV {[id number]) MCH 31.2 27.0 - 33.0 pg [facility] Comment:{MCH {[id number]) MCHC 33.7 32.0 - 36.0 g/dL [facility] Comment:{MCHC {[id number]) RDW 12.6 11.0 - 15.0 % [facility] Comment:{RDW {[id number]) PLT 211 140 - 400 Thousand/u L [facility] Comment:{PLATELET COUNT {[id number]) MPV 9.8 7.5 - 11.5 fL [facility] Comment:{MPV {[id number]) Neutrophils # 4068 1500 - 7800 cells/uL [facility] Comment:{ABSOLUTE NEUTROPHIL S {[id number]) Lymphocytes # 2088 850 - 3900 cells/uL [facility] Comment:{ABSOLUTE LYMPHOCYTE S {[id number]) Monocytes # 792 200 - 950 cells/uL [facility] Comment:{ABSOLUTE MONOCYTES {[id number]) Eosinophils # 223 15 - 500 cells/uL [facility] Comment:{ABSOLUTE EOSINOPHIL S {[id number]) Basophils # 29 0 - 200 cells/uL [facility] Comment:{ABSOLUTE BASOPHILS {[id number]) Neutrophils % 56.5 % [facility] Comment:{NEUTROPHILS {[id number]) Lymphocytes % 29.0 % [facility] Comment:{LYMPHOCYTES {[id number]) Monocytes % 11.0 % [facility] Comment:{MONOCYTES {[id number]) Eosinophils % 3.1 % [facility] Comment:{EOSINOPHILS {[id number]) Basophils % 0.4 % [facility] Comment:{BASOPHILS {[id number]) 08/17/2013 2:08 PM EDT 08/18/2013 2:06 AM EDT Narrative Resulting Agency Comment [id number] Netta Crum MD LAB SAME DAY RESULT Final Resul t [facility] [address] [place] [address] * BASIC METABOLIC PANEL WITH (GFR) (08/17/2013 2:08 PM EDT) Glucose 73 65 - 99 mg/dL [facility] Comment: {GLUCOSE {[id number]) Fasting reference interval Urea Nitrogen Blood (BUN) 15 7 - 25 mg/dL [facility] Comment:{UREA NITROGEN (BUN) {[id number]) Creatinine 0.73 0.50 - 1.10 mg/dL [facility] Comment:{CREATININE {[id number]) GFR 111 > OR = 60 mL/min/1. 73m2 [facility] Comment:{eGFR NON-AFR. AMERI CAN {[id number]) GFR () 129 > OR = 60 mL/min/1. 73m2 [facility] Comment:{eGFR AMERIC AN {[id number]) BUN/Creatinine Ratio NOT APPLICABLE 6 - 22 (calc) [facility] Comment:{BUN/CREATININE RATI O {[id number]) Sodium 140 135 - 146 mmol/L [facility] Comment:{SODIUM {[id number]) Potassium 4.0 3.5 - 5.3 mmol/L [facility] Comment:{POTASSIUM {[id number]) Chloride 105 98 - 110 mmol/L [facility] Comment:{CHLORIDE {[id number]) Carbon dioxide 25 19 - 30 mmol/L [facility] Comment:{CARBON DIOXIDE {[id number]) Calcium 8.9 8.6 - 10.2 mg/dL [facility] Comment:{CALCIUM {[id number]) 08/17/2013 2:08 PM EDT 08/18/2013 2:06 AM EDT Narrative [facility] - 08/18/2013 4:53 AM EDT Please note that this estimated GFR does not include an adjustment for the patient's height or weight, and can therefore, be viewed as reliable only for patients with heights between 60 and 72 . More precise quantification using a 24-hour urine sample or height-based algorithm is recommended for patients outside of this range of height and for those individuals with more precise needs for GFR calculation. Resulting Agency Comment [id number] Netta Crum MD LABORATORY Final Result Performing Organization Address [facility] Phone Number [facility] [address] [place] [address] * THYROID STIMULATING HORMONE (TSH) WITH FREE T4 REFLEX, SERUM (08/17/2013 2:08 PM EDT) TSH 0.87 mIU/L [facility] Comment: {TSH W/REFLEX TO FT4 {[id number]) Reference Range > or = 20 Years 0.40-4.50 Ranges First trimester 0.26-2.66 Second trimester 0.55-2.73 Third trimester 0.43-2.91 08/17/2013 2:08 PM EDT 08/18/2013 2:06 AM EDT Narrative Resulting Agency Comment [id number] Netta Crum MD LABORATORY Final Result Performing Organization Address [facility] Phone Number [facility] [address] [place] [address] documented in this encounter Visit Diagnoses Diagnosis Screening for deficiency anemia- Primary Screening for other and unspecified deficiency anemia Routine history and physical examination of adult Routine general medical examination at a health care facility Cough Screening for deficiency anemia Screening for other and unspecified deficiency anemia Routine history and physical examination of adult Routine general medical examination at a health care facility Cough documented in this encounter Care Teams Rn Oncology Research Relationship Specialty Start Date End Date Netta Crum MD PCP - General Internal Medicine 07/11/13 01/26/15 Unknown Pcp, Non Rmg PCP - General Surgical Oncology 01/27/15 documented as of this encounter
--- OUTSIDE RECORDS SUMMARY | 2025-03-17 08:51 | XMS_ITS | Encounter Summary ---
Author Organization [facility] Address [address] [place] [address] Care Team Providers Care White Sugar Syrup Operator Name Role Phone Netta Crum MD Primary Care Provider Unavaila ble Unknown Pcp, Non Rmg Primary Care Provider Unava ilable Encounter Details Date Type Department Care Team (Late st Contact Info) Description 08/17/[address] 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 documented in this encounter Plan of Treatment Not on file documented as of this encounter Procedures * Due to [place] state law, this organization might not be sharing negative HIV tests. Procedure Name Priority Date/Time Associated Diagnosis Comments CBC INCLUDES DIFFERENTIAL AND PLATELET COUNT Routine 08/17/2013 2:08 PM EDT Screening for deficiency anemia Routine history and physical examination of adult Cough THYROID STIMULATING HORMONE (TSH) WITH FREE T4 REFLEX, SERUM Routine 08/17/2013 2:08 PM EDT Screening for deficiency anemia Routine history and physical examination of adult Cough BASIC METABOLIC PANEL WITH (GFR) Routine 08/17/2013 2:08 PM EDT Screening for deficiency anemia Routine history and physical examination of adult Cough documented in this encounter Results * Due to [place] state law, this organization might not be sharing negative HIV tests. * CBC INCLUDES DIFFERENTIAL AND PLATELET COUNT (08/17/2013 2:08 PM EDT) WBC 7.2 3.8 - 10.8 Thousand/u L [facility] Comment:{WHITE BLOOD CELL CO UNT {[id number]) RBC 4.43 3.80 - 5.10 Million/uL [facility] Comment:{RED BLOOD CELL COUN T {[id number]) Hemoglobin 13.8 11.7 - 15.5 g/dL [facility] Comment:{HEMOGLOBIN {[id number]) Hematocrit 41.0 35.0 - 45.0 % [facility] Comment:{HEMATOCRIT {[id number]) MCV 92.6 80.0 - 100.0 fL [facility] Comment:{MCV {[id number]) MCH 31.2 27.0 - 33.0 pg [facility] Comment:{MCH {[id number]) MCHC 33.7 32.0 - 36.0 g/dL [facility] Comment:{MCHC {[id number]) RDW 12.6 11.0 - 15.0 % [facility] Comment:{RDW {[id number]) PLT 211 140 - 400 Thousand/u L [facility] Comment:{PLATELET COUNT {[id number]) MPV 9.8 7.5 - 11.5 fL [facility] Comment:{MPV {[id number]) Neutrophils # 4068 1500 - 7800 cells/uL [facility] Comment:{ABSOLUTE NEUTROPHIL S {[id number]) Lymphocytes # 2088 850 - 3900 cells/uL [facility] Comment:{ABSOLUTE LYMPHOCYTE S {[id number]) Monocytes # 792 200 - 950 cells/uL [facility] Comment:{ABSOLUTE MONOCYTES {[id number]) Eosinophils # 223 15 - 500 cells/uL [facility] Comment:{ABSOLUTE EOSINOPHIL S {[id number]) Basophils # 29 0 - 200 cells/uL [facility] Comment:{ABSOLUTE BASOPHILS {[id number]) Neutrophils % 56.5 % [facility] Comment:{NEUTROPHILS {[id number]) Lymphocytes % 29.0 % [facility] Comment:{LYMPHOCYTES {[id number]) Monocytes % 11.0 % [facility] Comment:{MONOCYTES {[id number]) Eosinophils % 3.1 % [facility] Comment:{EOSINOPHILS {[id number]) Basophils % 0.4 % [facility] Comment:{BASOPHILS {[id number]) 08/17/2013 2:08 PM EDT 08/18/2013 2:06 AM EDT Narrative Resulting Agency Comment [id number] Netta Crum MD LAB SAME DAY RESULT Final Resul t [facility] [address] [place] [address] * BASIC METABOLIC PANEL WITH (GFR) (08/17/2013 2:08 PM EDT) Glucose 73 65 - 99 mg/dL [facility] Comment: {GLUCOSE {[id number]) Fasting reference interval Urea Nitrogen Blood (BUN) 15 7 - 25 mg/dL [facility] Comment:{UREA NITROGEN (BUN) {[id number]) Creatinine 0.73 0.50 - 1.10 mg/dL [facility] Comment:{CREATININE {[id number]) GFR 111 > OR = 60 mL/min/1. 73m2 [facility] Comment:{eGFR NON-AFR. AMERI CAN {[id number]) GFR () 129 > OR = 60 mL/min/1. 73m2 [facility] Comment:{eGFR AMERIC AN {[id number]) BUN/Creatinine Ratio NOT APPLICABLE (calc) [facility] Comment:{BUN/CREATININE RATI O {[id number]) Sodium 140 135 - 146 mmol/L [facility] Comment:{SODIUM {[id number]) Potassium 4.0 3.5 - 5.3 mmol/L [facility] Comment:{POTASSIUM {[id number]) Chloride 105 98 - 110 mmol/L [facility] Comment:{CHLORIDE {[id number]) Carbon dioxide 25 19 - 30 mmol/L [facility] Comment:{CARBON DIOXIDE {[id number]) Calcium 8.9 8.6 - 10.2 mg/dL [facility] Comment:{CALCIUM {[id number]) 08/17/2013 2:08 PM EDT 08/18/2013 2:06 [...] needs for GFR calculation. Resulting Agency Comment [id number] Netta Crum MD LABORATORY Final Result [facility] [address] [place] [address] * THYROID STIMULATING HORMONE (TSH) WITH FREE T4 REFLEX, SERUM (08/17/2013 2:08 PM EDT) TSH 0.87 mIU/L [facility] Comment: {TSH W/REFLEX TO FT4 {[id number]) Reference Range > or = 20 Years 0.40-4.50 Ranges First trimester 0.26-2.66 Second trimester 0.55-2.73 Third trimester 0.43-2.91 08/17/2013 2:08 PM EDT 08/18/2013 2:06 AM EDT Narrative Resulting Agency Comment [id number] Netta Crum MD LABORATORY Final Result [facility] [address] [place] [address] documented in this encounter Visit Diagnoses Diagnosis Screening for deficiency anemia Screening for other and unspecified deficiency anemia Routine history and physical examination of adult Routine general medical examination at a health care facility Cough documented in this encounter Care Teams White Sugar Syrup Operator Relationship Specialty Start Date End Date Netta Crum MD PCP - General Internal Medicine 07/11/13 01/26/15 Unknown Pcp, Non Rmg PCP - General Surgical Oncology 01/27/15 documented as of this encounter
--- OUTSIDE RECORDS SUMMARY | 2025-03-17 08:51 | XMS_ITS | Encounter Summary ---
Author Organization [facility] Address [address] [place] [address] Phone Care Team Providers Care Industrial Locomotive Operator Name Role Phone Candice Justice MD Primary Care Provider [phone] Encounter Details Date Type Department Care Team (Late st Contact Info) Description 11/24/2020 Telephone [facility], Department of Neurology [address] [place] [address] Tory Weber, RN [address] [place] [address] [email or web address] Social History Tobacco Use Types Packs/Day Years [...] documented as of this encounter Care Teams Industrial Locomotive Operator Relationship Specialty Start Date End Date Candice Justice MD [address] [place] [address] PCP - General Internal Medicine 06/06/17 documented as of this encounter Additional Source Comments The information contained in this document represents components of the legal health record. It is not the complete legal health record.[facility]
--- OUTSIDE RECORDS SUMMARY | 2025-03-17 08:51 | XMS_ITS | Encounter Summary ---
Author Organization [facility] Address [address] [place] [address] Phone Care Team Providers Care Brusher Name Role Phone Candice Justice MD Primary Care Provider Encounter Details Date Type Department Care Team (Late st Contact Info) Description 06/10/2020 Procedure Pass [facility] MR Imaging, [place] [address] [place] [address] Social History Tobacco Use Types Packs/Day Years [...] documented as of this encounter Care Teams Brusher Relationship Specialty Start Date End Date Candice Justice MD [address] [place] [address] PCP - General Internal Medicine 1/23/18 documented as of this encounter Additional Source Comments The information contained in this document represents components of the legal health record. It is not the complete legal health record.[facility]
--- OUTSIDE RECORDS SUMMARY | 2025-03-17 08:51 | XMS_ITS | Encounter Summary ---
Author Organization [facility] Address [address] [place] [address] Phone Care Team Providers Care Billing Customer Service Representative Name Role Phone Candice Justice MD Primary Care Provider [phone] Encounter Details Date Type Department Care Team (Late st Contact Info) Description 11/29/2021 Procedure Pass [facility], [address] [address] Social History Tobacco Use Types Packs/Day Years [...] documented as of this encounter Care Teams Billing Customer Service Representative Relationship Specialty Start Date End Date Candice Justice MD [address] [place] [address] PCP - General Internal Medicine 06/06/17 documented as of this encounter Additional Source Comments The information contained in this document represents components of the legal health record. It is not the complete legal health record.[facility]
--- OUTSIDE RECORDS SUMMARY | 2025-03-17 08:51 | XMS_ITS | Clinical Summary ---
Author Organization [facility] Address [address] [place] [address] Care Team Providers Care Hod Carrier Name Role Phone Unknown Pcp, Non Rmg Primary Care Provider Unava ilable Allergies No known active allergies Medications Norgestimate-Et h Estradiol (SPRINTEC 28) 0.25-35 MG-MCG Tab 1 TABLET DAILY Activ e Venlafaxine HCl 37.5 MG CAPSULE SR 24 HR TAKE 1 CAPSULE DAILY WITH FOOD, PLEASE BOOK APPOINTMENT PRIOR TO FURTHER REFILLS 30 Cap 0 Active Active Problems Problem Noted Date Diagnosed Date Abnormal Pap smear of cervix 12/09/2013 Overview (03/11/2021): Pap done on 11/27/13 was ASCUS. Follows with Acid Conditioning Worker Dr Korin Romano. MOOD DISORDER 09/03/2013 Screening for cervical cancer 2013 Overview (2013): Follows with Acid Condition[employer] Worker Dr Korin Romano. FH: diabetes mellitus 08/31/2012 MS (multiple sclerosis) 08/31/2012 Overview (2013): Stable. Dx in [address] Tom. 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 Not on file Not on file 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 Not on file Not on file Last Filed Vital Signs Vital Sign Reading Time Taken Comments Blood Pressure 100/72 05/10/2014 11:46 AM EST Pulse 97 05/10/2014 11:46 AM EST Temperature 36.9 C (98.5 F) 05/10/2014 11:46 AM EST Respiratory Rate 16 05/10/2014 11:46 AM EST Oxygen Saturation 98% 05/10/2014 11:46 AM EST Inhaled Oxygen Concentration - - Weight 58.1 kg (128 lb) 11/06/2013 10:03 AM EDT Height 165.1 cm (5' 5 ) 2013 8:11 AM EDT Body Mass Index 21.3 2013 8:11 AM EDT Plan of Treatment Health Maintenance Due Date Last Done Comments Hepatitis C Screening 1984 Hep B (1 of 3 - 19+ 3-dose series) 07/30/2003 Pap Smear 08/15/2014 08/16/2011 (Previously completed) DTaP/Tdap/Td (2 - Td or Tdap) 04/27/2020 04/27/2010 Mammogram/Breast Imaging 2024 COVID-19 Vaccine ( - 2024-2 6 season) 2025 Influenza (#1) 2025 02/21/2013 Zoster (Shingrix) (1 of 2) 2034 HPV Vaccine (No Doses Required) Completed Hep A Aged Out No longer eligi ble based on patient's age to complete this topic Hib Aged Out No longer eligi ble based on patient's age to complete this topic Meningococcal ACWY Aged Out No longer eligible based on patient's age to complete this topic Pneumococcal Aged Out No longer eligi ble based on patient's age to complete this topic Insurance MEDICAID Care Teams Hod Carrier Relationship Specialty Start Date End Date Unknown Pcp, Non Rmg PCP - General Surgical Oncology 01/27/15
--- OUTSIDE RECORDS SUMMARY | 2025-03-17 08:51 | XMS_ITS | Encounter Summary ---
Author Organization [facility] Address [address] [place] [address] Care Team Providers Care Automotive Lot Attendant Name Role Phone Netta Crum MD Primary Care Provider Unavaila ble Unknown Pcp, Non Rmg Primary Care Provider Unava ilable Encounter Details Date Type Department Care Team ([facility] st Contact Info) Description 07/11/2013 Orders Only [facility] Internal Medicine [address] [place] [id number] Ameena Palafox MD [address] [place] [address] Social History Tobacco Use Types Packs/Day Years Used Date Smoking Tobacco: Never Alcohol Use Standard Drinks/Week Comments Not Asked 0 (1 standard drink = 0.6 oz pur e alcohol) Comments Unknown Sex and Gender Information Value Date Recorded Sex Assigned at Not on file Legal Sex Female 12:09 AM EDT Gender Identity Not on file Sexual Orientation Not on file documented as of this encounter Plan of Treatment Not on file documented as of this encounter Visit Diagnoses Diagnosis Screening for deficiency anemia Screening for other and unspecified deficiency anemia Lipid screening Screening for lipoid disorders Routine history and physical examination of adult Routine general medical examination at a health care facility documented in this encounter Care Teams Automotive Lot Attendant Relationship Specialty Start Date End Date Netta Crum MD PCP - General Internal Medicine 07/11/13 01/26/15 Unknown Pcp, Non Rmg PCP - General Surgical Oncology 01/27/15 documented as of this encounter
--- OUTSIDE RECORDS SUMMARY | 2025-03-17 08:51 | XMS_ITS | Encounter Summary ---
Author Organization [facility] Address [address] [place] [id number] Phone Care Team Providers Care Fuel Operator Name Role Phone Candice Justice MD Primary Care Provider [phone] Encounter Details Date Type Department Care Team (Late st Contact Info) Description 06/10/[address] [facility], [place] [address] [place] [address] Social History Tobacco Use Types Packs/Day Years [...] documented as of this encounter Care Teams Fuel Operator Relationship Specialty Start Date End Date Candice Justice MD [address] [place] [address] PCP - General Internal Medicine 1/23/18 documented as of this encounter Additional Source Comments The information contained in this document represents components of the legal health record. It is not the complete legal health record.[facility]
--- OUTSIDE RECORDS SUMMARY | 2025-03-17 08:51 | XMS_ITS | Encounter Summary ---
Author Organization [facility] Address [address] [place] [address] Care Team Providers Care Linux Server Engineer Name Role Phone Netta Crum MD Primary Care Provider Unavaila ble Unknown Pcp, Non Rmg Primary Care Provider Unava ilable Reason for Visit * Reason Comments E-prescribing Refill Request Encounter Details Date Type Department Care Team ([facility] st Contact Info) Description 03/01/2014 Refill [facility] Internal Medicine [address] [place] [phone] Netta Crum MD E-prescribing Refill Request Social [...] Industry Job Start Date Job End Date [employer] Not on file Not on file Not on ned e 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 female received from pharmacy. Unable to confirm pharmacy with pt, most recent pharmacy on file was used. Any special requests or concerns?- none Last CPE with this specialty: 2013 Last OV with this specialty: 11/06/2013 Next OV: No future appointments. Pertinent lab results: No labs suggested for any medication orders signed or pended in this encounter. Refresh if any orders changed. Allergies: Review of patient's allergies indicates no known allergies. BP Readings from Last 1 Encounters: 11/06/13 107/77 Patient Active Problem List Diagnosis Date Noted ??? ASCUS on Pap smear 12/09/2013 Pap done on 11/27/13 was ASCUS. Follows with [employer] Dr Korin Romano. ??? MOOD DISORDER 09/03/2013 ??? Screening for cervical cancer 2013 [address]s with [employer] Dr Korin Romano. ??? FH: diabetes mellitus 08/31/2012 ??? MS (multiple sclerosis) 08/31/2012 Stable. Dx in [address] Tom. Current Outpatient Prescriptions on File Prior to Visit Medication Sig Dispense Refill ??? Venlafaxine HCl 37.5 MG CAPSULE SR 24 HR TAKE 1 CAPSULE DAILY WITH FOOD 90 Cap 1 ??? Norgestimate-Eth Estradiol (SPRINTEC 28) 0.25-35 MG-MCG Tab 1 TABLET DAILY documented in this encounter Plan of Treatment Not on file documented as of this encounter Visit Diagnoses Not on filedocumented in this encounter Care Teams Linux Server Engineer Relationship Specialty Start Date End Date Netta Crum MD PCP - General Internal Medicine 07/11/13 01/26/15 Unknown Pcp, Non Rmg PCP - General Surgical Oncology 01/27/15 documented as of this encounter
--- OUTSIDE RECORDS SUMMARY | 2025-03-17 08:52 | XMS_ITS | Encounter Summary ---
Author Organization [facility] Address [address] [place] [phone] Phone Care Team Providers Care Research Test Engine Operator Name Role Phone Candice Justice MD Primary Care Provider [phone] Encounter Details Date Type Department Care Team (Late st Contact Info) Description 08/28/2023 Procedure Pass [facility] [address] [place] [address] Social History Tobacco Use Types Packs/Day Years [...] documented as of this encounter Care Teams Research Test Engine Operator Relationship Specialty Start Date End Date Candice Justice MD [address] [place] [address] PCP - General Internal Medicine 06/06/17 documented as of this encounter Additional Source Comments The information contained in this document represents components of the legal health record. It is not the complete legal health record.[facility]
--- OUTSIDE RECORDS SUMMARY | 2025-03-17 08:52 | XMS_ITS | Encounter Summary ---
Author Organization [facility] Address [address] [place] [phone] Phone Care Team Providers Care Turn Laster Name Role Phone Candice Justice MD Primary Care Provider [phone] Encounter Details Date Type Department Care Team (Late st Contact Info) Description 11/29/2021 Procedure Pass [facility], [address] [address] Social History Tobacco Use Types Packs/Day Years [...] documented as of this encounter Care Teams Turn Laster Relationship Specialty Start Date End Date Candice Justice MD [address] [place] [address] PCP - General Internal Medicine 06/06/17 documented as of this encounter Additional Source Comments The information contained in this document represents components of the legal health record. It is not the complete legal health record.[facility]
--- OUTSIDE RECORDS SUMMARY | 2025-03-17 08:52 | XMS_ITS | Encounter Summary ---
Author Organization [facility] Address [address] [place] [address] Phone Care Team Providers Care Leach Runner Name Role Phone Candice Justice MD Primary Care Provider [phone] Encounter Details Date Type Department Care Team (Late st Contact Info) Description 11/29/2021 Procedure Pass [facility], [address] [address] Social History Tobacco Use Types Packs/Day Years [...] documented as of this encounter Care Teams Leach Runner Relationship Specialty Start Date End Date Candice Justice MD [address] [place] [address] PCP - General Internal Medicine 06/06/17 documented as of this encounter Additional Source Comments The information contained in this document represents components of the legal health record. It is not the complete legal health record.[facility]
== END 2025-03-17 08:50 | disposition home or self-care (01) ==
PROVIDERS: PCP Internal Medicine; Referring Provider Internal Medicine; Visit Provider Registered Nurse
DX: G35.D Multiple sclerosis, unspecified (principal); G43.109 Migraine with aura, not intractable, without status migrainosus
CPT/HCPCS: 99214